=== PATIENT | male | born 1945 | race Caucasian/White ===

== ENCOUNTER 2020-07-23 17:35 | Emergency (ER) | payer MEDICARE, SELFPAY ==
[2020-07-23 17:37] VITALS: BP 143/79; PULSE 91; RESP 20; TEMP 37.7; O2SAT 92; BMI 27.2
[2020-07-23 17:39] VITALS: O2SAT 94
--- NOTE | 2020-07-23 17:52 | HMH.EDGENADL ---
ED Disposition Clinical Impression: COVID-19 Disposition: Home, Self-Care Condition on Discharge: Good Additional Instructions: Please drink plenty of fluids. Immediately return if on pulse ox you have readings less than 90%, shortness of breath, concern for dehydration, weakness, or other new concerning symptoms. Otherwise please follow-up on Saturday for antibody infusion. Referrals: Ryan Dejesus MD [Primary Care Provider] - - Critical Care Critical Care Time: No Attestation: On 07/23/20, the high probability of a clinically significant, sudden or life threatening deterioration of the following system(s) required my full and direct attention, intervention and personal management. The time I documented below is in addition to time spent performing reported procedures but includes the following listed in this critical care notation. Medical Decision Making - Medical Records Medical records reviewed: Yes: I reviewed the patient's medical records. - [place] Inquiry Pt receiving controlled substance: No Vital Signs: 07/23/20 17:37 07/23/20 17:39 07/23/20 18:36 Temperature 99.8 F H Temperature Source Oral Pulse Rate [Radial] 91 H 92 H Respiratory Rate 20 18 Blood Pressure [Right Arm] 143/79 H 141/82 H Blood Pressure Mean [Right Arm] 100 101 Blood Pressure Source [Right Arm] Automatic Cuff Blood Pressure Position [Right Arm] Sitting 02 Sat by Pulse Oximetry 92 L 94 L 95 Oxygen Delivery Method Room Air Nasal Cannula Oxygen Flow Rate (LPM) 3 - Lab Data Lab Results 07/23/20 18:04: WBC 12.7 H, RBC 5.20, Hgb 16.4, Hct 48.0, MCV 92.5, MCH 31.6 H, MCHC 34.1, RDW 14.6, Plt Count 192, MPV 8.5, Neut % (Auto) 85.1 H, Lymph % (Auto) 6.5 L, Morrison % (Auto) 7.3, Eos % (Auto) 0.7, Baso % (Auto) 0.5, Neut # (Auto) 10.8 H, Lymph # (Auto) 0.8, Morrison # (Auto) 0.9, Eos # (Auto) 0.1, Baso # (Auto) 0.1, Total Counted 100, Neutrophils % (Manual) 89 H, Lymphocytes % (Manual) 6 L, Monocytes % (Manual) 4, Eosinophils % (Manual) 1, Platelet Estimate Normal, Poikilocytosis 1+, Acanthocytes (Spur) 1+ 07/23/20 18:04: Sodium 133 L, Potassium 3.9, Chloride 96 L, Carbon Dioxide 27, Anion Gap 13.9, BUN 17, Creatinine 1.00, Estimated Creat Clear 75, Estimated GFR 72, Est GFR ( Amer) 88, Glucose 161 H, Calcium 9.7, Magnesium 1.7, Total Bilirubin 1.8 H, AST 31, ALT 26, Alkaline Phosphatase 112, Troponin I < 0.01, Total Protein 8.1, Albumin 4.5, Globulin 3.6 H, Albumin/Globulin Ratio 1.3 07/23/20 18:04: SARS-CoV-2 IgG Ab (Rapid) Negative, SARS-CoV-2 IgM Ab (Rapid) Negative 07/23/20 18:04: Urine Color Yellow, Urine Appearance Clear, Urine pH 5.5, Ur Specific [place] 1.020, Urine Protein 1+, Urine Glucose (UA) 3+, Urine Ketones 1+, Urine Blood Trace-i, Urine Nitrate Negative, Urine Bilirubin Negative, Urine Urobilinogen 0.2, Ur Leukocyte Esterase Negative, Urine RBC None, Urine WBC None, Ur Squamous Epith Cells Occasional, Amorphous Sediment 1+, Urine Bacteria None Result diagrams: 07/23/20 18:04 07/23/20 18:04 Orders (Tests/Meds): ED MEDICATIONS Generic Name Dose Route Start Last Admin Trade Name Freq PRN Reason Stop Dose Admin Lactated Ringer's 1,000 mls @ 999 mls/hr 07/23/20 18:15 07/23/20 18:33 Lactated Ringer's 1000 Ml Bag IV 07/23/20 19:15 999 mls/hr .Q1H1M SHAUN Administration Discontinued Medications Generic Name Dose Route Start Last Admin Trade Name Freq PRN Reason Stop Dose Admin Acetaminophen 650 mg 07/23/20 18:15 07/23/20 18:32 Acetaminophen 325mg Tab PO 07/23/20 18:16 650 mg ONCE ONE Administration ORDERS Category Date Time Status XR chest portable Stat Exams 07/23/20 18:11 Taken - ECG Data Tracing #1 I reviewed this ECG and interpreted as documented below: EKG demonstrates sinus rhythm at a rate of 90 bpm; right bundle branch noted; [place] normal; no acute ST elevation/depression Medical Decision Narrative: Patient 75-year-old male presenting with generalized w
--- NOTE | 2020-07-23 18:11 | XR_ITS ---
PROCEDURE: XR CHEST PORTABLE CLINICAL HISTORY: dyspnea + COVID positive COMPARISON: No exams were available for comparison FINDINGS: The cardiomediastinal silhouette and pulmonary vascularity are within normal limits. The lungs are clear without infiltrates, suspicious nodules, or pleural effusions. There is an old left clavicle fracture. IMPRESSION: No acute findings. Dictated by: Neil Metz MD 07/24/2020 08:28 Neil Metz MD in [place] 07/24/2020 08:28
[2020-07-23 18:17] LABS: Basophils # 0.1 K/mm3 (0-0.2); Basophils % 0.5 % (0.1-2.0); Eosinophils # 0.1 K/mm3 (0.0-0.4); Eosinophils % 0.7 % (0.1-12.0); Hemoglobin 16.4 g/dL (14.1-18.0); Lymphocytes # 0.8 K/mm3 (0.7-4.5); Lymphocytes % 6.5 % (10-50); Mean Corpuscular HGB Conc 34.1 g/dL (31.8-35.4); Mean Corpuscular Hemoglobin 31.6 pg (27.0-31.2); Mean Corpuscular Volume 92.5 fl (80-94); Mean Platelet Volume 8.5 fl (7.4-10.4); Monocytes # 0.9 K/mm3 (0.1-1.0); Monocytes % 7.3 % (1.7-9.3); Neutrophils # 10.8 K/mm3 (1.8-7.8); Neutrophils % 85.1 % (37.0-80.0); Platelet Count 192 K/mm3 (142-424); Red Cell Distribution Width 14.6 % (11.5-17.5); White Blood Count 12.7 K/mm3 (4.8-10.8)
[2020-07-23 18:20] LABS: MANUAL DIFFERENTIAL MANUAL DIFFERENTIAL (MANUAL DIFF)
[2020-07-23 18:22] LABS: Alanine Aminotransferase 26 U/L (12-78); Albumin Level 4.5 g/dl (3.5-5.0); Albumin/Globulin Ratio 1.3 (1.1-1.8); Alkaline Phosphatase 112 U/L (38-126); Anion Gap 13.9 mEq/L (5-15); Aspartate Amino Transferase 31 U/L (17-59); Bilirubin,Total 1.8 mg/dl (0.2-1.3); Blood Urea Nitrogen 17 mg/dl (9-20); Calcium 9.7 mg/dl (8.4-10.2); Carbon Dioxide 27 mmol/L (22.0-30.0); Chloride 96 mmol/L (98-107); Creatinine Clearance Estimated 75 mL/min (50-200); Estimated Glomerular Filt Rate 72 ml/min (>60); GFR (African American) 88 ML/MIN (>60); Globulin 3.6 g/dL (1.3-3.2); Glucose 161 mg/dl (74-100); Magnesium 1.7 mg/dl (1.6-2.3); Potassium 3.9 mmoL/L (3.5-5.1); Sodium 133 mmol/L (136-145); Total Protein,Serum 8.1 g/dl (6.3-8.2)
--- NOTE | 2020-07-23 18:23 | ECG_ITS ---
APPROVED REPORT Exam: Resting ECG HR:90 bpm ECG Measurements Heart Rate 90 AXES WY 162 P 29 QRSd 146 QRS 35 QT 396 T 7 QTc 484 Conclusion Normal sinus rhythm Right bundle branch block Cannot rule out Inferior infarct, age undetermined Abnormal ECG Electronically signed by : Ryan Dejesus, 07/24/2020 06:36:14
[2020-07-23 18:28] LABS: Acanthocytes 1+; Eosinophils % 1 % (0-3); Lymphocytes % 6 % (10-50); Microscopic, Urine URINE MICROSCOPIC (MICROSCOPIC); Monocytes % 4 % (2-9); Neutrophils % 89 % (42-76); Platelet Estimate Normal; Poikilocytosis 1+; Total Cells Counted 100
[2020-07-23 18:31] LABS: Appearance,Urine CLEAR (Clear); Bilirubin,Urine Negative (Negative); Blood, Urine TRACE-I (Negative); Color,Urine YELLOW (Yellow); Glucose,Urine (UA) 3+ (Negative); Ketones,Urine 1+ (Negative); Leukocyte Esterase,Urine Negative (Negative); Nitrate,Urine Negative (Negative); PH,Urine 5.5 (5.0-8.5); Protein,Urine 1+ (Negative); Urobilinogen,Urine 0.2 EU/dl (0.2)
[2020-07-23 18:36] VITALS: BP 141/82; PULSE 92; RESP 18; O2SAT 95
[2020-07-23 18:39] LABS: Troponin I < 0.01 ng/ml (0.00-0.034)
[2020-07-23 18:44] LABS: Amorphous Sediment,Urine 1+ /lpf; Squamous Epithelial Cell,Urine Occasional #/hpf (0-5)
[2020-07-23 19:11] LABS: Coronavirus 19 IgG Antibody Negative (Negative); Coronavirus 19 IgM Antibody Negative (Negative)
[2020-07-23 19:36] VITALS: BP 130/75; PULSE 98; RESP 17; TEMP 36.8; O2SAT 95
== END 2020-07-23 19:39 | disposition home or self-care (01) ==
PROVIDERS: Emergency Provider Emergency Medicine; PCP Internal Medicine Adolescent Medicine
DX: Z20.828 Contact with and (suspected) exposure to other viral communicable diseases (principal); I10 Essential (primary) hypertension; E11.9 Type 2 diabetes mellitus without complications; I25.10 Atherosclerotic heart disease of native coronary artery without angina pectoris; E78.5 Hyperlipidemia, unspecified; Z01.84 Encounter for antibody response examination; Z79.899 Other long term (current) drug therapy
CPT/HCPCS: 71045; 80053; 81001; 83735; 84484; 85007; 85025; 86328; 93005; 99282

== ENCOUNTER 2020-07-25 08:45 | Outpatient (CLI) | payer MEDICARE, SELFPAY ==
[2020-07-25] VITALS (10 sets, daily range): BP systolic 121–141; BP diastolic 73–80; PULSE 76–85; RESP 16–18; TEMP 36.6–36.9; O2SAT 90–94
--- NOTE | 2020-07-25 10:41 | PC.NURSE ---
pt resting comfortably in bed, drinking pop at this time, will continue to monitor.
--- NOTE | 2020-07-25 11:01 | PC.NURSE ---
pt infusion finished at this time, pt up to the restroom will continue to monitor
== END 2020-07-25 12:32 | disposition home or self-care (01) ==
PROVIDERS: PCP Internal Medicine Adolescent Medicine; Visit Provider Internal Medicine Adolescent Medicine
DX: U07.1 COVID-19 (principal)
CPT/HCPCS: 96365

== ENCOUNTER → 2021-02-27 13:05 | Outpatient (CLI) | payer MEDICARE, SELFPAY ==
--- NOTE | 2021-02-27 13:18 | FL_ITS ---
PROCEDURE: FL BARIUM SWALLOW MODIFIED CLINICAL INDICATION: DYSPHAGIA COMPARISON: No exams were available for comparison TECHNIQUE: Patient administered varying consistencies of barium contrast, while viewed in lateral position under real-time fluoroscopy with cine recording. FLUOROSCOPY TIME:1 minutes and 55 seconds The study was performed in conjunction with speech pathologist. Please see that report & recommendations. FINDINGS: Patient was given varying consistencies of barium. No aspiration apparent. There was mild residual within the vallecular region with putting and mechanical soft which cleared with thin wash. No aspiration or penetration. IMPRESSION: Mild residual within the vallecula with putting and mechanical soft which cleared with thin wash. No aspiration or penetration Please see speech pathologist report and recommendations. Dictated by: Neil Metz MD 03/01/2021 12:57 Neil Metz MD in [place] 03/01/2021 12:57
--- NOTE | 2021-02-27 13:46 | HMH.SLMBS2 ---
Speech & Language Evaluation Speech/Language Mod Barium Swallow Start: 02/27/21 13:39 Freq: once Status: Complete Protocol: Document 02/27/21 13:39 CHASITY (Rec: 02/27/21 13:46 CHASITY [id number]) General Information General Current Food Consistancy Regular,Thin Liquids Dentition Upper & Lower Dentures Oxygen Status Room Air Facial Symmetry Symmetrical Patient Orientation Person,Place,Time,Situation Ability to Follow Directions Excellent Communication Ability No Impairment MBS Recommendations Diet Dietary Recommendations Regular,Thin Liquids Treatment/Strategies Strategy/Precaution Recommend Sitting Upright (90 deg),Small Bites and Sips,Alternate Liquids/Solids Mod Barium Swallow Impressions Summary and Impressions Oral Phase Impression No Impairment (WFL) Oral Phase Summary Mr. Goff was given the following consistencies: thins via straw and open cup, pudding, mechanical soft, regular, and pill with thin wash. No oral phase impairments noted. Pharyngeal Phase Impression Minimal Impairment Pharyngeal Phase Summary It was noted that Mr. Goff did have penetration into the laryngeal vestibule with large volume of thin liquids from subsequent straw boluses. He did exhibit minimal vallecular residue with pudding and mechanical soft that cleared with thin wash. It is recommended he remain on current diet of regular with thin liquids. Alternating between a bite and a sip and taking small bites and sips will decrease dysphagia. Speech/Language MBS Assessment/Goals/Plan Assessment Date of Evaluation: 02/27/21 Evaluation Type Initial Certification Assessment/Problems Dysphagia Does Patient Qualify for Service No Qualify/Failure Comment Patient is able to decrease dysphagia based on home recommendations. Recommendations PHYSICIAN CERTIFICATION: The specified therapy services are required, authorized, and reviewed every 30 days. Diet Recommendations Normal Liquid Type Recommendations Normal/Thin SL Swallow Guidelines Alt bite w/sip thru meal Dysphagia [place]
== END ==
PROVIDERS: PCP Internal Medicine Adolescent Medicine; Visit Provider Internal Medicine Adolescent Medicine
DX: R13.10 Dysphagia, unspecified (principal)
CPT/HCPCS: 70371; 92611

== ENCOUNTER → 2021-05-30 18:02 | Outpatient (CLI) | payer MEDICARE, SELFPAY ==
[2021-05-30 19:01] LABS: Alanine Aminotransferase 23 U/L (12-78); Albumin Level 3.8 g/dl (3.5-5.0); Albumin/Globulin Ratio 1.4 (1.1-1.8); Alkaline Phosphatase 99 U/L (38-126); Anion Gap 8.5 mEq/L (5-15); Aspartate Amino Transferase 44 U/L (17-59); Bilirubin,Total 0.7 mg/dl (0.2-1.3); Blood Urea Nitrogen 15 mg/dl (9-20); Calcium 9.4 mg/dl (8.4-10.2); Carbon Dioxide 32 mmol/L (22.0-30.0); Chloride 102 mmol/L (98-107); Chol/HDL Ratio 2.4 (1-3.5); Cholesterol 100 mg/dl (140-200); Estimated Glomerular Filt Rate 82 ml/min (>60); GFR (African American) 99 ML/MIN (>60); Globulin 2.7 g/dL (1.3-3.2); Glucose 161 mg/dl (74-100); HDL Cholesterol 41 mg/dl (40-60); Potassium 4.5 mmoL/L (3.5-5.1); Sodium 138 mmol/L (136-145); Total Protein,Serum 6.5 g/dl (6.3-8.2); Triglycerides 76 mg/dl (30-150); VLDL Cholesterol 15 mg/dL (0-40)
[2021-05-30 19:03] LABS: Basophils # 0.1 K/mm3 (0-0.2); Eosinophils # 0.2 K/mm3 (0.0-0.4); Eosinophils % 3.2 % (0.1-12.0); Hematocrit 45.8 % (42.0-52.0); Hemoglobin 14.9 g/dL (14.1-18.0); Lymphocytes # 1.6 K/mm3 (0.7-4.5); Lymphocytes % 31.2 % (10-50); Mean Corpuscular HGB Conc 32.6 g/dL (31.8-35.4); Mean Corpuscular Hemoglobin 31.4 pg (27.0-31.2); Mean Corpuscular Volume 96.5 fl (80-94); Mean Platelet Volume 10.1 fl (7.4-10.4); Monocytes # 0.4 K/mm3 (0.1-1.0); Monocytes % 8.7 % (1.7-9.3); Neutrophils # 2.8 K/mm3 (1.8-7.8); Platelet Count 225 K/mm3 (142-424); Red Blood Count 4.74 M/mm3 (4.60-6.20); Red Cell Distribution Width 14.7 % (11.5-17.5); White Blood Count 5.1 K/mm3 (4.8-10.8)
[2021-05-30 19:13] LABS: Direct LDL Cholesterol 43.12 mg/dL (100-129)
[2021-05-30 20:29] LABS: Hemoglobin A1C 9.4 % (4.0-6.0)
[2021-06-01 09:26] LABS: CEA 2.9 ng/mL (0.0-4.7)
== END ==
PROVIDERS: Visit Provider Internal Medicine Adolescent Medicine
DX: Z00.00 Encounter for general adult medical examination without abnormal findings (principal); E11.9 Type 2 diabetes mellitus without complications; Z85.038 Personal history of other malignant neoplasm of large intestine; Z79.84 Long term (current) use of oral hypoglycemic drugs
CPT/HCPCS: 80053; 80061; 82378; 83036; 85025

== ENCOUNTER → 2021-07-11 18:23 | Outpatient (CLI) | payer MEDICARE, SELFPAY ==
[2021-07-11 19:05] LABS: Hemoglobin A1C 6.4 % (4.0-6.0)
== END ==
PROVIDERS: Visit Provider Internal Medicine Adolescent Medicine
DX: E11.9 Type 2 diabetes mellitus without complications (principal); Z79.84 Long term (current) use of oral hypoglycemic drugs
CPT/HCPCS: 83036